=== PATIENT | female | born 1955 | race Caucasian/White ===

== ENCOUNTER 2018-01-24 09:01 | Emergency (ER) | payer OTHER ==
[2018-01-24 09:42] VITALS: BP 170/95
--- NOTE | 2018-01-24 09:49 | UC ---
Complaint Female HPI - HPI Summary HPI Summary: 62 year old female presents with 3 day history of burning with urination and urgency. Associated with mild lower back pain. Denies fever, chills, abdominal pain, nausea, vomiting, urinary frequency, vaginal discharge or bleeding. - History Of Current Complaint Chief Complaint: UCGU Stated Complaint: URINARY Time Seen by Provider: 01/24/18 09:16 Hx Obtained From: Patient ?: No Onset/Duration: Gradual Onset, Lasting Days - 3 Severity Initially: Mild Severity Currently: Mild Pain Intensity: 2 Character: Burning Aggravating Factor(s): Urination Alleviating Factor(s): Nothing Associated Signs And Symptoms: Positive: Back Pain. Negative: Fever, Vaginal Bleeding/Discharge, Nausea, Vomiting(# Of Episodes =), Genital Swelling, Genital Blisters - Allergies/Home Medications Allergies/Adverse Reactions: Allergies Allergy/AdvReac Type Severity Reaction Status Date / Time sulfamethoxazole Allergy Hives Verified 01/24/18 09:23 [From Bactrim] trimethoprim [From Bactrim] Allergy Hives Verified 01/24/18 09:23 Home Medications: Home Medications Esomeprazole(NF) [Nexium(NF)] 40 mg PO DAILY 01/24/18 [History Confirmed ] Levothyroxine TAB* [Synthroid 100 MCG TAB*] 100 mcg PO DAILY 01/24/18 [History Confirmed 01/24/18] Metoprolol Succinate XL TAB* [Toprol XL TAB*] 25 mg PO DAILY 01/24/18 [History Confirmed 01/24/18] Vitamin THERAPEUTIC TAB* [Theragran TAB*] 1 tab PO DAILY 01/24/18 [History Confirmed 01/24/18] PMH/Surg Hx/FS Hx/Imm Hx Endocrine History: Hypothyroidism Cardiovascular History: Hypertension GI/ History: Gastroesophageal Reflux - Surgical History Surgical History: Yes Surgery Procedure, Year, and Place: Cholecystectomy, 2016, [place] - Family History Family History: Noncontributory - Social History Occupation: Retired Lives: Alone Alcohol Use: Rare Substance Use Type: None Smoking Status (MU): Never Smoked Tobacco When Did the Patient Quit Smoking/Using Tobacco: 30 years ago Review of Systems Constitutional: Negative Skin: Negative Respiratory: Negative Cardiovascular: Negative Gastrointestinal: Negative Genitourinary: Dysuria, Urgency Is Patient Immunocompromised?: No All Other Systems Reviewed And Are Negative: Yes Physical Exam Triage Information Reviewed: Yes Appearance: Well-Appearing, No Pain Distress, Obese Vital Signs: Initial Vital Signs Temp 98.3 F 01/24/18 09:25 Pulse 68 01/24/18 09:25 Resp 16 01/24/18 09:25 BP 170/95 01/24/18 09:25 Pulse Ox 97 01/24/18 09:25 Vital Signs Reviewed: Yes Respiratory: Positive: Lungs clear, Normal breath sounds, No respiratory distress Cardiovascular: Positive: RRR, No Murmur, Pulses Normal Abdomen Description: Positive: Nontender, No Organomegaly, Soft. Negative: CVA Tenderness (R), CVA Tenderness (L) Neurological: Positive: Alert Skin Exam: Normal Complaint Female Dx - Course Course Of Treatment: 62 year old female with 3 day history of dysuria and urgency. UA showed 2+ blood, 1+ leukocyte esterase. Will start on Macrobid BID x 5 days and Pyridium 100 mg TID x 2 days. Urine culture sent. - Differential Dx/Diagnosis Provider Diagnoses: acute urinary cystitis with hematuria Discharge - Sign-Out/Discharge Documenting (check all that apply): Patient Departure All imaging exams completed and their final reports reviewed: No Studies - Discharge Plan Condition: Stable Disposition: HOME Prescriptions: Nitrofurantoin Monohyd/M-Cryst [Macrobid 100 mg Capsule] 100 mg PO BID #10 cap Phenazopyridine TAB* [Pyridium 100 mg TAB*] 100 mg PO TID #6 tab Patient Education Materials: Urinary Tract Infection in Women (ED) Referrals: No Primary Care Phys,NOPCP [Primary Care Provider] - Additional Instructions: Your urine test in the clinic today is suggestive of a urinary tract infection. We will be sending your urine for culture to see if it grows out any bacteria and make sure if it does that you are on the correct antibiotic. It will take 48 -72 hours to obtain these results. We will contact you if there is any need to change your treatment. Start Macrobid 1 tab twice daily for 5 days to treat the infection. Use Pyridium 1 tab every 8 hours for next 2 days to help with the discomfort. Drink plenty of fluids. Your blood pressure in the clinic today was elevated. You should contact your primary care provider and have this rechecked within 1 week. - Billing Disposition and Condition Condition: STABLE Disposition: Home
== END 2018-01-24 10:02 | disposition home or self-care (01) ==
LOC: UCCORT 09:01
DX: N30.01 Acute cystitis with hematuria (principal); M54.5 Low back pain; K21.9 Gastro-esophageal reflux disease without esophagitis; I10 Essential (primary) hypertension; E03.9 Hypothyroidism, unspecified; Z79.899 Other long term (current) drug therapy; Z88.2 Allergy status to sulfonamides
CPT/HCPCS: 81003; 87077; 87086; 87186; 99212; G0463